=== PATIENT | female | born 1980 | race Caucasian/White ===

== ENCOUNTER 2021-02-19 08:43 | Outpatient (CLI) | payer OTHER | END 2021-02-19 08:44 | disposition home or self-care (01) | LOC: BICMAMMO 08:43 | PROVIDERS: ATTEND Obstetrics & Gynecology | DX: N60.22 Fibroadenosis of left breast (principal); R92.1 Mammographic calcification found on diagnostic imaging of breast | CPT/HCPCS: 19083; 88305; G0279 ==

== ENCOUNTER 2021-02-26 13:13 | Outpatient (CLI) | payer OTHER ==
[2021-02-26 14:43] LABS: #Eosinphils 0.1 10x3/uL (0.0-0.5); #Monocytes 0.5 10x3/uL (0.0-1.1); #Neutrophils 3.7 10x3/uL (1.5-8.4); %Basophils 0.7 % (0.0-2.0); %Eosinophils 1.3 % (0.0-6.0); %Lymphocytes 29.4 % (18.0-47.0); %Monocytes 7.8 % (0.0-10.0); %Neutrophils 60.6 % (40.0-75.0); Hemoglobin 12.8 g/dL (12.0-15.5); Mean Corpuscular HGB CONC 33.3 g/dL (32.0-36.0); Mean Corpuscular Volume 86.9 fl (81.6-98.3); Mean Platelet Volume 9.2 fl (7.4-10.4); Platelet Count 278 10x3/uL (150-450); RBC Distribution Width 12.3 % (11.5-14.5); Red Blood Cell (RBC) Count 4.42 10x6/uL (3.90-5.03); White Blood Cell (WBC) Count 6.1 10x3/uL (3.5-10.5)
[2021-02-26 15:06] LABS: Anion Gap 14 mmol/L (10-20); BHCG - Serum Negative (NEGATIVE); BUN (Urea Nitrogen) 16 mg/dL (7.0-18.7); Calc. Creatinine Clearance 0 mL/min (70-130); Calcium 8.8 mg/dL (7.8-10.44); Carbon Dioxide 24 mmol/L (22-29); Chloride 106 mmol/L (98-107); Glucose 135 mg/dL (70-105); Potassium 4.1 mmol/L (3.5-5.1); Pregs Control Background? CLEAR/WHITE (CLR/WHITE); Pregs Control Bar Appear? YES (CONTROL BAR); Sodium 140 mmol/L (136-145)
[2021-02-27 13:49] LABS: SARS-CoV-2 PCR by NAA Not Detected (NotDetected)
== END 2021-02-26 13:14 | disposition home or self-care (01) ==
LOC: LABBT 13:13
PROVIDERS: ATTEND Specialist
DX: Z01.812 Encounter for preprocedural laboratory examination (principal); Z20.822 Contact with and (suspected) exposure to COVID-19
CPT/HCPCS: 80048; 84703; 85025; U0003; U0005

== ENCOUNTER 2021-03-03 07:12 | Day surgery (SDC) | payer OTHER ==
[2021-02-26 11:08] VITALS: BMI 26.6
[2021-03-03] MEDS ORDERED: Acetaminophen 500 MG TAB ONE (08:22)
[2021-03-03] MEDS ORDERED: Ketorolac Tromethamine 30 MG/ML VIAL ONE (08:22)
[2021-03-03] MEDS ORDERED: Scopolamine 1.5 mg/72 hour Patch ONE (09:38)
[2021-03-03] MEDS ORDERED: Midazolam HCl 2 mg/2 ml Vial ONE (09:38)
[2021-03-03] MEDS ORDERED: Bupivacaine 0.25% HCL 30 ML VIAL ONE (10:01)
[2021-03-03] MEDS ORDERED: Xylocaine 1% w/ Epi 1:100K 10 ML VIAL ONE (10:01)
[2021-03-03] MEDS ORDERED: Fentanyl 100 MCG/2 ML VIAL ONE (10:10)
[2021-03-03] MEDS ORDERED: ceFAZolin 2 GM/DEX 5% 100 ML BAG ONE (10:18)
[2021-03-03] MEDS ORDERED: Dexamethasone 20 MG/5 ML VIAL ONE (10:30)
[2021-03-03] MEDS ORDERED: Lidocaine 1% PF 5 ML VIAL ONE (10:30)
[2021-03-03] MEDS ORDERED: ePHEDrine 50 MG/ML VIAL ONE (10:30)
[2021-03-03] MEDS ORDERED: Ondansetron PF 4 MG/2 ML Vial ONE (10:30)
[2021-03-03] MEDS ORDERED: PROPOFOL 200 MG/20 ML VIAL ONE (10:30)
== END 2021-03-03 13:08 | disposition home or self-care (01) ==
LOC: SDC 07:12
PROVIDERS: ATTEND Specialist
PROC: 0HBU0ZZ Excision of Left Breast, Open Approach (ICD-10-PCS; principal; 2021-03-03)
DX: N60.32 Fibrosclerosis of left breast (principal); L90.5 Scar conditions and fibrosis of skin; N60.92 Unspecified benign mammary dysplasia of left breast; N60.22 Fibroadenosis of left breast; G43.909 Migraine, unspecified, not intractable, without status migrainosus; Z86.16 Personal history of COVID-19; Z79.899 Other long term (current) drug therapy
CPT/HCPCS: 76098; 88307; C1713; J1885; J2250; J3010; S0020